=== PATIENT | female | born 1975 | race Caucasian/White ===

== ENCOUNTER 2022-11-19 16:04 | Emergency (ER) | payer MEDICAID, OTHER ==
[2022-11-19 16:33] LABS: BASOPHILS PERCENT AUTO 0.3 % (0.2-1.2); EOSINOPHILS ABSOLUTE AUTO 0.2 x10^3/uL (0.0-0.5); EOSINOPHILS PERCENT AUTO 2.5 % (0.0-4.0); HEMATOCRIT 36.2 % (33.0-47.0); HEMOGLOBIN 12.7 g/dL (12.0-16.0); IMMATURE GRAN ABSOLUTE AUTO 0.01 x10^3/uL (0.00-0.07); LYMPHOCYTES ABSOLUTE AUTO 2.4 x10^3/uL (1.0-4.8); LYMPHOCYTES PERCENT AUTO 31.6 % (25.0-50.0); MEAN CORPUSCULAR HEMOGLOBIN 32.2 pg (26.0-32.0); MEAN CORPUSCULAR HGB CONC 35.1 g/dL (32.0-36.0); MEAN CORPUSCULAR VOLUME 91.6 fL (78.0-93.0); MONOCYTES ABSOLUTE AUTO 0.6 x10^3/uL (0.0-0.8); MONOCYTES PERCENT AUTO 8.2 % (2.0-11.0); NEUTROPHILS ABSOLUTE AUTO 4.4 x10^3/uL (1.8-7.7); NEUTROPHILS PERCENT AUTO 57.3 % (50.0-80.0); PLATELET COUNT,PLT 278 x10^3/uL (130-400); RED BLOOD CELL COUNT 3.95 x10^6/uL (4.00-5.50); WHITE BLOOD CELL COUNT,WBC 7.7 x10^3/uL (4.0-10.0)
[2022-11-19 16:54] LABS: A/G RATIO 1.03; ALANINE AMINOTRANSFERASE,ALT 52 U/L (14-59); ALBUMIN 3.5 g/dL (3.4-5.0); ALKALINE PHOSPHATASE 80 U/L (46-116); ASPARTATE AMNIOTRANSFERASE,AST 22 U/L (15-37); BLOOD UREA NITROGEN,BUN 9 mg/dL (7-18); C-REACTIVE PROTEIN 0.19 mg/dL (<=0.30); CALCIUM 8.4 mg/dL (8.5-10.1); CARBON DIOXIDE,CO2 27 mmol/L (21-32); CHLORIDE,CL 102 mmol/L (98-107); CREATININE 0.7 mg/dL (0.55-1.02); GLUCOSE RANDOM 118 mg/dL (70-99); MAGNESIUM 1.7 mg/dL (1.8-2.4); POTASSIUM,K 3.5 mmol/L (3.5-5.1); PROTEIN TOTAL,TP 6.9 g/dL (6.4-8.2); SODIUM,NA 140 mmol/L (136-145)
[2022-11-19 16:55] LABS: ANION GAP 14.5 mmol/L (5-15); ESTIMATED GFR 109 mL/min (>=60)
[2022-11-19 17:31] LABS: BILIRUBIN TOTAL < 0.2 mg/dL (0.2-1.0)
== END 2022-11-19 17:16 | disposition home or self-care (01) ==
LOC: VM.ED 16:04
DX: H00.012 Hordeolum externum right lower eyelid (principal); R20.2 Paresthesia of skin; Z88.0 Allergy status to penicillin
CPT/HCPCS: 36415; 70450; 80053; 83735; 85025; 86140; 99284

== ENCOUNTER 2023-08-21 16:26 | Emergency (ER) | payer MEDICAID, OTHER ==
[2023-08-21] MEDS: Take Home: Clindamycin HCl 150 MG Cap, 6 Cap Pack PO ONE (17:28)
== END 2023-08-22 17:55 | disposition home or self-care (01) ==
LOC: VM.ED 16:26
DX: K04.7 Periapical abscess without sinus (principal)
CPT/HCPCS: 99282; A9270

== ENCOUNTER 2023-09-09 23:50 | Emergency (ER) | payer BC, OTHER ==
[2023-09-10] MEDS: Lidocaine 1% with EPINEPHrine 1:100,000 20 ML MDV INFILT PRN (00:52)
[2023-09-10] MEDS ORDERED: Diphtheria,Pertussis(Acell),Tetanus Vaccine 0.5 ML Syringe IM ONE (00:56)
[2023-09-10] MEDS: Lidocaine 4% 5 ML Amp TOP ONE (01:29)
== END 2023-09-10 01:17 | disposition home or self-care (01) ==
LOC: VM.ED 23:50
DX: S01.01XA Laceration without foreign body of scalp, initial encounter (principal); S80.211A Abrasion, right knee, initial encounter; S80.212A Abrasion, left knee, initial encounter; W19.XXXA Unspecified fall, initial encounter
CPT/HCPCS: 12013; 99283; J3490

== ENCOUNTER 2024-05-02 20:13 | Emergency (ER) | payer BC ==
[2024-05-02] MEDS: predniSONE 20 MG Tab PO ONE (20:30)
== END 2024-05-02 20:33 | disposition home or self-care (01) ==
LOC: VM.ED 20:13
DX: R20.0 Anesthesia of skin (principal); F17.210 Nicotine dependence, cigarettes, uncomplicated; Z88.0 Allergy status to penicillin; Z88.8 Allergy status to other drugs, medicaments and biological substances; Z79.899 Other long term (current) drug therapy; Z90.49 Acquired absence of other specified parts of digestive tract
CPT/HCPCS: 82947; 99284; J7512

== ENCOUNTER 2024-08-29 20:14 | Emergency (ER) | payer BC | END 2024-08-29 20:50 | disposition home or self-care (01) | LOC: VM.ED 20:14 | DX: S01.00XA Unspecified open wound of scalp, initial encounter (principal); Z88.0 Allergy status to penicillin; Z88.8 Allergy status to other drugs, medicaments and biological substances; X50.9XXA Other and unspecified overexertion or strenuous movements or postures, initial encounter | CPT/HCPCS: 99282; 99283 ==